=== PATIENT | male | born 1950 | race Caucasian/White ===

== ENCOUNTER → 2018-03-17 | Day surgery (SDC) | payer MEDICARE ==
[2018-03-14 14:58] LABS: BASOPHILS # (AUTO) 0.1 (0.0-0.1); BASOPHILS % 0.7 % (0.0-1.0); EOSINOPHILS # (AUTO) 0.2 (0.0-0.4); EOSINOPHILS % 1.9 % (0.0-6.0); HEMATOCRIT 49.3 % (38.2-49.6); HEMOGLOBIN 16.9 g/dL (14.0-18.0); LYMPHOCYTES # (AUTO) 3.9 (1.0-3.2); LYMPHOCYTES % 43.6 % (18.0-39.1); MEAN CORPUSCULAR HGB CONC 34.3 g/dL (31-35); MEAN CORPUSCULAR VOLUME 93.4 fL (81-99); MONOCYTES # (AUTO) 1.1 (0.2-0.8); MONOCYTES % 12.4 % (4.4-11.3); NEUTROPHILS # (AUTO) 3.7 (2.1-6.9); NEUTROPHILS % 40.7 % (38.7-80.0); PLATELET COUNT 300 x10e3/uL (140-360); RED BLOOD COUNT 5.28 x10e6/uL (4.3-5.7); RED CELL DISTRIBUTION WIDTH 12.6 % (11.7-14.4)
[2018-03-14 15:08] LABS: INR 1.07; PROTHROMBIN TIME 13.1 seconds (11.9-14.5)
[2018-03-14 15:09] LABS: PARTIAL THROMBOPLASTIN TIME 29.8 seconds (23.8-35.5)
[2018-03-14 15:15] LABS: ALBUMIN 4.4 g/dL (3.5-5.0); ALBUMIN/GLOBULIN RATIO 1.3 (0.8-2.0); ANION GAP 12.5 mmol/L (8-16); CALCIUM 9.8 mg/dL (8.4-10.2); CREATININE, SERUM 1.27 mg/dL (0.72-1.25); POTASSIUM 4.5 mmol/L (3.5-5.1)
--- NOTE | 2018-03-14 15:17 | Diagnostic Imaging Report ---
PROCEDURE: Frontal and lateral views of the chest. COMPARISON: None. INDICATIONS: pre op hernia repair FINDINGS: Lines/tubes: None. Lungs: The lungs are well inflated. 7 mm nodular density projecting in the lateral right mid to lower lung on the frontal view. There is no evidence of consolidation or pulmonary edema. Pleura: There is no pleural effusion or pneumothorax. Heart and mediastinum: Cardiac silhouette is unremarkable. Pulmonary vasculature is normal. Mildly tortuous aorta. Bones: No acute bony abnormality. IMPRESSION: 1. No acute cardiopulmonary abnormalities. 2. 7 mm nodular density in the right mid to lower lung is indeterminate. Prior films, if available, would be helpful for comparison. If no prior films can be obtained, recommend followup chest, PA and lateral in 1-2 months document stability. Alternatively a chest CT may be obtained for further evaluation. Scooby Leyva M.D. Dictated by: Scooby Leyva M.D. on 03/14/2018 at 15:20 Electronically approved by: Scooby Leyva M.D. on 03/14/2018 at 15:20
[~2018-03-17] MED LIST: BACITRACIN 50,000 UNIT VIAL ONE; BACITRACIN ZINC 15 GM OINT ONE; BUPIVACAINE HCL 0.5% INJ 30 ML VIAL INJ ONE; BYSTOLIC10 MG PO; DIPHENHYDRAMINE HCL INJ 50 MG/ML VIAL ONE; FENTANYL CITRATE/PF 100MCG/2 ML INJ ONE; KEFLEX500 MG PO; LISINOPRIL10 MG PO; MIDAZOLAM HCL 2 MG/2 ML VIAL ONE; MORPHINE SULFATE 2 MG/ML SYR ONE; POVIDONE IODINE 30 GM TUBE ONE; PRILOSEC10 M1; SEVOFLURANE INHAL SOLN 250 ML PEN BTL ONE; TYLENOL WITH C1 EACH PO
--- NOTE | 2018-03-17 12:00 | Operative Report ---
DATE OF PROCEDURE: March 17, 2018 AGE: 67 SEX: Male. PREOPERATIVE DIAGNOSIS: Right inguinal hernia. POSTOPERATIVE DIAGNOSIS: Right inguinal hernia. OPERATION PERFORMED: Right inguinal hernia repair. ANESTHESIA: General. INDICATIONS: This patient is a 67-year-old white male who has had a large lump in his left groin going down into the scrotum for several months' duration. Physical examination revealed that he had a hernia. For further details, please refer to the history and physical. The procedure was done in the following fashion: DESCRIPTION OF PROCEDURE: The patient was taken to the operating room, placed under general anesthesia, dressed and prepped with Betadine in the supine position in the usual fashion. The hernia was reducible into the abdomen while he was under anesthesia. The testicles appeared normal. After he was dressed and draped, a incision was made in the inguinal increase as a curvilinear incision. I then used skin rakes to lift up on the skin edges and to dissect through the subcutaneous fat and Francisco's fascia. Hemostasis was maintained with electrocautery with the cautery set at 40 and the cutting on 40. The external oblique aponeurosis was then readily identified. An incision was made in the external oblique aponeurosis using a scalpel. Then both sides were elevated with hemostats, and Metzenbaum was passed bluntly in both directions. Then the external oblique aponeurosis opened and the external inguinal ring opened as well. My next step at this point in time was to look for the ilioinguinal nerve, but it appeared to be plastered into the hernial sac. What I did at this point in time was to place my finger around the spermatic cord and hernial sac and lift up on it with my index finger. Then I began a slow, tedious dissection to dissect the spermatic cord and vas off of the massive, wide-mouthed, indirect inguinal hernial sac. This sac was very large, and the spermatic cord was plastered to it. It was just a very slow, tedious dissection. In order to help confirm where I was anatomically, I opened up the sac as well and used hemostats. I could see clearly both sides of the sac, and I could put my fingers directly into the peritoneal cavity through his large wide-mouth sac. Care was taken to make sure that there was no bowel as part of the wall of the sac. Once the vas and spermatic cord were dissected off of the now open hernial sac, I decided to close to the defect by using a pursestring suture of #0 Vicryl. Care was taken to avoid any injury to bowel as I held the sac open as I put the stitches in and out of the sac with the pursestring suture. Once this was accomplished, I then tied off the pursestring suture and then removed a specimen of the hernial sac to go to the pathology department. Now that the indirect hernial sac was repaired, I saw that there was still a big defect in the floor of the inguinal canal. I decided to do a Gli's ligament repair, and this was done by first putting a stitch of #0 Ethibond into the pubic tubercle to the conjoined tendon, then from the transversalis fascia and conjoined tendon into the Gil's ligament. Then I took stitches from the conjoined tendon to the shelving portion of Poupart's ligament. I felt that there might be too much tension on the closure, so, therefore, what I did was I made a relaxing incision higher up in the fascia by the tendon so that there would be no tension on the closure once I tied off the sutures that had been placed. Once I had positioned all of the sutures to the pubic tubercle, the Gli's ligament and the shelving portion of Poupart's ligament, I then tied them down one at that time starting with first with the pubic tubercle, then with Gil's ligament suture, and then with the sutures to the shelving portion of Poupart's ligament. There was no tension that I could see after having made the relaxing incision, which was made before I tied these down. I made sure to be careful that the spermatic cord was not strangulated. A small lipoma of the spermatic cord was excised with electrocautery. Once this was accomplished, I decided the safest thing to do would be to put in a Prolene mesh. This was then placed by cutting it in the middle so that the spermatic cord would lie over the mesh. One end of the mesh was sutured to the pubic tubercle with #0 Ethibond. Then, using the [place] drain which I had around the spermatic cord, I could elevate the spermatic cord and be sure that the mesh was laid down nicely beneath the spermatic cord. I put in 2 shelby on each side, 2 on the medial side and 2 on the lateral side, in order to hold the mesh down in position. I then put a stitch of #0 Ethibond in the flaps that were behind the spermatic cord. The wound was copiously irrigated and inspected for hemostasis. I then closed the external oblique with running #0 Vicryl. The Francisco's fascia was closed with interrupted 3-0 chromic and the skin closed with shelby. Betadine ointment, Adaptic and dressing were applied. A scrotal support dressing was applied. Care was made to be sure that the right testicle was within the scrotum before the operation was completed. Blood loss was estimated at about 2 to 5 mL maximum. The patient tolerated the procedure well and left the operating room in good condition. My plan at this time is to have the patient discharged once he urinates and to send him home on a combination of Keflex 500 mg 1 p.o. 4 times a day, number 40, and on Tylenol No. 3 one p.o. q.6 h. p.r.n. pain, number 40, and for him to have a return appointment to see me again in about 2 weeks for removal of the shelby. Job#: [id number] ALONDRA HORNER
== END | disposition home or self-care (01) ==
LOC: OR 07:55
PROVIDERS: ATTEND Urology
DX: K40.20 Bilateral inguinal hernia, without obstruction or gangrene, not specified as recurrent (principal); D17.6 Benign lipomatous neoplasm of spermatic cord; N40.1 Benign prostatic hyperplasia with lower urinary tract symptoms; R35.1 Nocturia; D35.00 Benign neoplasm of unspecified adrenal gland; I10 Essential (primary) hypertension; R00.1 Bradycardia, unspecified; N28.1 Cyst of kidney, acquired; K64.4 Residual hemorrhoidal skin tags; K27.7 Chronic peptic ulcer, site unspecified, without hemorrhage or perforation; H91.90 Unspecified hearing loss, unspecified ear; K21.9 Gastro-esophageal reflux disease without esophagitis; K44.9 Diaphragmatic hernia without obstruction or gangrene; N20.0 Calculus of kidney; K57.30 Diverticulosis of large intestine without perforation or abscess without bleeding; M10.9 Gout, unspecified; R19.5 Other fecal abnormalities; Z01.810 Encounter for preprocedural cardiovascular examination; Z01.812 Encounter for preprocedural laboratory examination; Z01.818 Encounter for other preprocedural examination
CPT/HCPCS: 36415; 49505; 71046; 80053; 85025; 85610; 85730; 88302; 88304; 93005; C1781; J1200; J2250; J2270